=== PATIENT | female | born 1940 | race Caucasian/White ===

== ENCOUNTER 2020-07-30 23:48 | Emergency (ER) | payer OTHER ==
[~2020-07-30] VITALS: Ht 154.9 cm; Wt 61.2 kg
[2020-07-30] MEDS ORDERED: CARDURA XL4 MG PO (23:57)
[2020-07-30] MEDS ORDERED: ALTACE10 MG PO (23:57)
[2020-07-30] MEDS ORDERED: SYNTHROID75 MCG PO (23:57)
[2020-07-30] MEDS ORDERED: HYDRALAZINE HCL25 MG PO (23:58)
[2020-07-30] MEDS ORDERED: GRALISE600 MG PO (23:58)
[2020-07-30] MEDS ORDERED: GLIMEPIRIDE1 M1 PO (23:58)
[2020-07-31] MEDS ORDERED: LEVSIN0.125 MG PO (03:19)
[2020-07-31] MEDS ORDERED: INTESTINEX680 M1 PO (03:19)
[2020-07-31] MEDS ORDERED: PEPCID AC20 MG PO (03:19)
[2020-07-31] MEDS ORDERED: CIPRO500 MG PO (03:19)
[2020-07-31] MEDS ORDERED: METRONIDAZOLE500 MG PO (03:19)
[2020-07-31] MEDS ORDERED: ACETAMINOPHEN650 M2 PO (03:19)
== END 2020-07-31 04:08 | disposition home or self-care (01) ==
LOC: ER 23:48
DX: K52.89 Other specified noninfective gastroenteritis and colitis (principal); R10.31 Right lower quadrant pain; R10.32 Left lower quadrant pain

== ENCOUNTER 2020-09-14 06:30 | Emergency (ER) | payer OTHER ==
[~2020-09-14] VITALS: Ht 157.5 cm; Wt 62.1 kg
[~2020-09-14 06:30] MED LIST: ACETAMINOPHEN650 M2 PO; ALTACE10 MG PO; CARDURA XL4 MG PO; CIPRO500 MG PO; GLIMEPIRIDE1 M1 PO; GRALISE600 MG PO; HYDRALAZINE HCL25 MG PO; INTESTINEX680 M1 PO; LEVSIN0.125 MG PO; METRONIDAZOLE500 MG PO; PEPCID AC20 MG PO; SYNTHROID75 MCG PO
[2020-09-14] MEDS ORDERED: LEVSIN/SL0.125 MG PO (17:43)
[2020-09-14] MEDS ORDERED: INTESTINEX680 M1 PO (17:43)
[2020-09-14] MEDS ORDERED: PEPCID AC20 MG PO (17:43)
[2020-09-14] MEDS ORDERED: CELEBREX100 MG PO (17:43)
== END 2020-09-14 18:25 | disposition home or self-care (01) ==
LOC: ER 06:30
DX: K29.70 Gastritis, unspecified, without bleeding (principal); K80.80 Other cholelithiasis without obstruction; N20.0 Calculus of kidney; R10.13 Epigastric pain; R77.8 Other specified abnormalities of plasma proteins

== ENCOUNTER 2020-10-12 07:14 | Outpatient (CLI) | payer OTHER ==
[~2020-10-12 07:14] MED LIST changes: +CELEBREX100 MG PO; +LEVSIN/SL0.125 MG PO
== END 2020-10-12 07:26 | disposition home or self-care (01) ==
LOC: TOM 07:14
PROVIDERS: ATTEND Internal Medicine Gastroenterology
DX: K76.0 Fatty (change of) liver, not elsewhere classified (principal); K80.80 Other cholelithiasis without obstruction; N20.0 Calculus of kidney; K57.30 Diverticulosis of large intestine without perforation or abscess without bleeding; R10.30 Lower abdominal pain, unspecified
CPT/HCPCS: 74177; Q9965

== ENCOUNTER 2021-02-15 16:31 | Emergency (ER) | payer OTHER ==
[~2021-02-15] VITALS: Ht 160 cm; Wt 55.8 kg
[2021-02-15] MEDS ORDERED: CIPRO500 MG PO (21:20)
[2021-02-15] MEDS ORDERED: KETO10TA2 PO (21:20)
[2021-02-15] MEDS ORDERED: PROBIOTIC1 EAC2 PO (21:20)
== END 2021-02-15 22:23 | disposition home or self-care (01) ==
LOC: ER 16:31
DX: K52.9 Noninfective gastroenteritis and colitis, unspecified (principal); R10.84 Generalized abdominal pain